=== PATIENT | male | born 1965 | race African-American/Black ===

== ENCOUNTER 2017-07-15 07:30 | Day surgery (SDC) | payer OTHER ==
--- NOTE | 2017-07-11 09:16 | History and Physical ---
History & Physical Date of Service Jul 11, 2017. History & Physical Plan of care discussed with Dr. Salazar CHIEF COMPLAINT: Lower extremity spasticity HISTORY OF PRESENT ILLNESS: Mr. Moseley is a 52 year old male that is known to the [facility] with a history of multiple sclerosis resulting in intractable lower extremity spasticity and rigidity. He has been wheelchair bound since 2006. Patient is able to stand briefly for transfers. He has failed Botox injections into the lower extremities. He is currently utilizing Baclofen 20mg QID with mild efficacy. He does continue to report nighttime awakenings due to spasticity. Spasms are worse on the right that the left. Discomfort ranges from 3-6/10 from the spasticity. Patient denies any constitutional complaints. PAST MEDICAL HISTORY: 1. Depression 2. Relapsing and remitting multiple sclerosis 3. History of marijuana use PAST SURGICAL HISTORY: None WORK HISTORY: Disabled SOCIAL HISTORY: He lives with his fiance in one child. Previous tobacco use. Daily marijuana use. No alcohol use. ALLERGIES: None MEDICATIONS: 1. Fosamax 70 mg daily 2. Baclofen 20 mg 4 times daily 3. Vitamin D 2000 units daily 4. Fluoxetine 20 mg daily 5. Copaxone 40 mg cutaneous injection 3 days a week 6. Multivitamin daily 7. Oxybutynin chloride 5 mg daily REVIEW OF SYSTEMS: Denies any constitutional, cardiac, pulmonary, neurological, GI, , extremity, endocrine, neuro, ENT, dermatological, or musculoskeletal complaints other than stated in HPI PHYSICAL EXAMINATION: VITAL SIGNS: Per admission GENERAL: 52-year-old male appears his stated age. Speech and cognition is intact. Mood and affect is appropriate. He is sitting quietly in the wheelchair, in no acute distress. HEAD: Normocephalic; atraumatic. EYES: Pupils are round, equal, and reactive to light; EOM intact. ENT: No external ear discharge or lesions. No rhinorrhea or epistaxis. No mucosal lesions. NECK: Ttrachea is midline; no cervical lymphadenopathy. CARDIO: Regular rate and rhythm. No murmurs, rubs, or gallops. PULM: Clear to auscultation. No wheezes, rales, or rhonchi. CHEST: Regular chest respiration and excursion. LOWER EXTREMITIES: No clonus noted. There is moderate rigidity of the quadriceps, hamstrings, and posterior lower legs; spasm of the right tibialis musculature. R Hip flexion 1/5; hip extension 1/5; knee extension 1/5; knee flexion 1/5; dorsiflexion 1/55; plantar flexion 1/5 L Hip flexion 3/5; hip extension 3/5; knee extension 3/5; knee flexion 3/5; dorsiflexion 3/5; plantar flexion 3/5 BACK: Full ROM. No midline or facet tenderness. No SI joint tenderness. NEURO: CN II-XII grossly intact with no focal deficits noted. AAO x 3. Gait not observed. Patellar Reflex L +2 R +2 Achilles Reflex L +2 R +2 SKIN: No lesions, erythema, or rashes noted. ASSESSMENT: Multiple sclerosis resulting in intractable lower extremity spasticity and rigidity TREATMENT: Mr. Moseley is a 52 year old male with a significant history of multiple sclerosis resulting in bilateral lower extremity spasticity and rigidity. He is current on Baclofen 80mg daily with mild relief of spasms. He denies any side effects to the medication. Patient does continue to experience significant limitation into his daily activities due to spasm/rigidity. It is recommended that the patient proceed with an intrathecal Baclofen trial to see if he may be a candidate for an intrathecal Baclofen pump and catheter delivery system. Risks and benefits were reviewed. Procedure was explained and he would like to proceed with the procedure. Procedure will be scheduled for 07/15.
[~2017-07-15] VITALS: Ht 175.3 cm; Wt 78.5 kg
[2017-07-15] VITALS (15 sets, daily range): BP systolic 117–176; BP diastolic 65–99; PULSE 54–64; TEMP 36.5–37.6; O2SAT 96–99; Ht 175.3 cm; Wt 78.5 kg
[~2017-07-15 07:30] MED LIST: BACL10TA PO; BACLOFEN 50 MCG/ML ITR SCH; CHOL20009; FLUO20CA35 PO; FSMD/70 PO; GLAT1INJ SQ; MULT-506 PO; OXYB5TAB21 PO; SODIUM CHLORIDE 0.9% 1000ML 1,000 ML IV SCH
[2017-07-15] MEDS ORDERED: FLUO10CA48 PO (07:58)
--- NOTE | 2017-07-15 09:56 | History & Physical Bridge Note ---
H&P Re-Evaluation Bridge Note: I have examined the patient, reviewed the History & Physical and in the interval since the performance of the History & Physical I have noted the following changes of clinical significance: No changes noted History and physical exam reviewed. No changes noted in either. Continues to have spasticity. Laboratory values reviewed and found to be appropriate to proceed. Risks, benefita and alternatives reviewed. He elected to proceed.
--- NOTE | 2017-07-15 11:29 | Pain Clinic Procedure Note ---
Pain Management Procedure Note Date of Procedure Jul 15, 2017. Procedure Description Procedure Time Out: side/site verified, patient ID confirmed, correct procedure Consent Obtained: written Performed By: Dr. Salazar Indications: diagnostic Contraindications: none Pre Procedure Vital Signs Date Time Temp Pulse Resp B/P (MAP) Pulse Ox O2 Delivery O2 Flow Rate FiO2 07/15/17 11:16 56 20 122/88 98 Room Air 07/15/17 10:58 36.8 55 18 146/85 97 Room Air 07/15/17 08:06 36.6 55 18 150/83 (105) 97 Room Air ASA Class: 3 Description: INTRATHECAL BACLOFEN TRIAL FOR SPASTICITY Diagnosis: Spasticity related to multiple sclerosis. Side/Level injected: Approximate L3/L4 Surgeon: Dr. Salazar Prior to starting, the Patients diagnosis and the procedure were reviewed with the patient in detail. Possible risks and complications including infection, bleeding, damage to surrounding structures and increased pain were discussed. Alternative therapies were also reviewed. Patients questions were answered and they agreed to proceed. Informed consent was obtained. Allergies and medication list was reviewed. The patient was brought to the procedure room and placed in sitting position. Immediately prior to starting the procedure, a time out was conducted with the staff and the patient where the patient was identified, proposed procedure was verified, consent was reviewed and the proper site for the planned procedure was identified. Monitors used included intermittent blood pressure with automated device, continuous pulse oximetry and level of consciousness. Patient was not given any intravenous sedation and constant verbal contact was maintained throughout the procedure. On examination, no signs of skin breakdown or infection were noted at the injection site. The site was cleansed with DuraPrep followed by Betadine. Sterile drapes were applied. 1% lidocaine 3 cc, was infiltrated in the skin and subcutaneous tissues using a 27 gauge needle. A 20gauge introducer followed by a 24gauge 3.5 inch Pjunk spinal needle was then inserted through the anesthetized area using 1.5 inch introducer and advanced via midline approach. The patient did not experience pain or paresthesia. Bevel of the needle was directed in the cephalad direction. Aspiration via the needle demonstrated positive CSF but no blood. Next, 50 mcg of preservative free baclofen was injected through the needle. The needle was then withdrawn. Adequate hemostasis was noted. Physical therapy will evaluate the patient three additional times over the next six hours to monitor response. Patient tolerated the procedure uneventfully without complications. Patient was brought to recovery area and observed. Vital signs were stable prior to discharge. Patient was discharged home with standard discharge instructions after 30minutes with an adult tow driver. Complications: none Patient Tolerated Procedure: well Post-Procedure Vital Signs: Vital Signs Date Time Temp Pulse Resp B/P (MAP) Pulse Ox O2 Delivery O2 Flow Rate FiO2 07/15/17 11:16 56 20 122/88 98 Room Air 07/15/17 10:58 36.8 Discharge Instructions: reviewed & understood Additional Comments: Lot #: [id number] Expiration date: 11/2017
--- NOTE | 2017-07-15 17:09 | Discharge Instructions ---
Discharge Instructions Date of Service Jul 15, 2017. Visit Reason for Visit: Ms With Lower Extremity Spasticity Rigidity Discharge Discharge Diagnosis / Problem: multiple sclerosis related spasticity. Status post intrathecal baclofen tr Discharge Goals Goal(s): Improve function Medications Stopped Medications Name(s): None Activity Recommendations Activity Limitations: resume your previous activity Anesthesia . Post Anesthesia Instructions: If you have had General Anesthesia or IV Sedation: * Do not drive today. * Resume driving when surgeon permits. * Do not make important decisions or sign legal documents today. * Call surgeon for: 1. Temperature elevations greater than 101 degrees F. 2. Uncontrollable pain. 3. Excessive bleeding. 4. Persistent nausea and vomiting. 5. Medication intolerance (nausea, vomiting or rash). * For nausea and vomiting use only clear liquids such as: tea, soda, bouillon until nausea subsides, then gradually increase diet as tolerated. * If you have any concerns or questions, call your surgeon's office. If physician is unavailable and it is an emergency, call 911 or go to the nearest emergency room. . Diet Recommendations Recommended Home Diet: resume previous diet Procedures Procedures Performed: Spinal injection of 50 g of baclofen Pending Studies Studies pending at discharge: no Medical Emergencies . Who to Call and When: Medical Emergencies: If at any time you feel your situation is an emergency, please call 911 immediately. . Non-Emergent Contact Non-Emergency issues call your: Primary Care Provider Call Non-Emergent contact if: temperature is above 101, wound has increased drainage . . "Provider Documentation" section prepared by Denis Salazar. . [place] Drug Monitoring Program Search Results: patient reviewed within database
== END 2017-07-15 17:30 | disposition home or self-care (01) ==
LOC: C.ACU 07:30
PROVIDERS: ATTEND Anesthesiology
DX: G35 Multiple sclerosis (principal); F32.9 Major depressive disorder, single episode, unspecified; F12.90 Cannabis use, unspecified, uncomplicated; Z79.899 Other long term (current) drug therapy

== ENCOUNTER 2017-10-07 11:08 | Observation (INO) | payer OTHER ==
--- NOTE | 2017-09-18 15:05 | History and Physical ---
History & Physical Date of Service Sep 18, 2017. History & Physical Plan of care discussed with Dr. Salazar CHIEF COMPLAINT: Lower extremity spasticity HISTORY OF PRESENT ILLNESS: Mr. Moseley is a 52 year old male that is known to the [facility] with a history of multiple sclerosis resulting in intractable lower extremity spasticity and rigidity. He has been wheelchair bound since 2006. Patient is able to stand briefly for transfers. He has failed Botox injections into the lower extremities. He is currently utilizing Baclofen 20mg QID with mild efficacy. He does continue to report nighttime awakenings due to spasticity. Spasms are worse on the right that the left. Discomfort ranges from 3-6/10 from the spasticity. Patient denies any constitutional complaints. PAST MEDICAL HISTORY: 1. Depression 2. Relapsing and remitting multiple sclerosis 3. History of marijuana use PAST SURGICAL HISTORY: None WORK HISTORY: Disabled SOCIAL HISTORY: He lives with his fiance in one child. Previous tobacco use. Daily marijuana use. No alcohol use. ALLERGIES: None MEDICATIONS: 1. Copaxone 40 mg cutaneous injection 3 days a week 2. Baclofen 20 mg 4 times daily 3. Vitamin D 2000 units daily 4. Fluoxetine 50 mg daily REVIEW OF SYSTEMS: Denies any constitutional, cardiac, pulmonary, neurological, GI, , extremity, endocrine, neuro, ENT, dermatological, or musculoskeletal complaints other than stated in HPI PHYSICAL EXAMINATION: VITAL SIGNS: Per admission GENERAL: 52-year-old male appears his stated age. Speech and cognition is intact. Mood and affect is appropriate. He is sitting quietly in the wheelchair, in no acute distress. HEAD: Normocephalic; atraumatic. EYES: Pupils are round, equal, and reactive to light; EOM intact. ENT: No external ear discharge or lesions. No rhinorrhea or epistaxis. No mucosal lesions. NECK: Ttrachea is midline; no cervical lymphadenopathy. CARDIO: Regular rate and rhythm. No murmurs, rubs, or gallops. PULM: Clear to auscultation. No wheezes, rales, or rhonchi. CHEST: Regular chest respiration and excursion. LOWER EXTREMITIES: No clonus noted. There is moderate rigidity of the quadriceps, hamstrings, and posterior lower legs; spasm of the right tibialis musculature. R Hip flexion 1/5; hip extension 1/5; knee extension 1/5; knee flexion 1/5; dorsiflexion 1/5; plantar flexion 1/5 L Hip flexion 3/5; hip extension 3/5; knee extension 3/5; knee flexion 3/5; dorsiflexion 3/5; plantar flexion 3/5 BACK: Full ROM. No midline or facet tenderness. No SI joint tenderness. NEURO: CN II-XII grossly intact with no focal deficits noted. AAO x 3. Gait not observed. SKIN: No lesions, erythema, or rashes noted. ASSESSMENT: Multiple sclerosis resulting in intractable lower extremity spasticity and rigidity TREATMENT: Mr. Moseley is a 52 year old male with a significant history of multiple sclerosis resulting in bilateral lower extremity spasticity and rigidity. He has been on oral Baclofen 80mg daily which is only providing mild relief. Patient did have an intrathecal Baclofen trial performed on 07/15/17 which provided moderate improvement of his symptoms. As the Baclofen trial was successful, it is recommended that the patient have an implantation of an intrathecal pump and catheter delivery system. Risks and benefits were reviewed. Procedure was explained and he would like to proceed with the procedure. Procedure will be scheduled for 10/07/2017.
[2017-09-25 13:59] VITALS: BMI 26.0
--- NOTE | 2017-09-25 14:08 | PAT Medication Instructions ---
Service Date Sep 25, 2017. Current Home Medication List Baclofen (Lioresal), 20 MG PO QID Fluoxetine (Prozac), 10 MG PO TID Glatiramer Acetate (Copaxone), SQ 3XWK Medication Instructions For Your Scheduled Surgery - Check with surgeon/prescribing physician for instructions: Glatiramer Acetate (Copaxone), SQ 3XWK - Take the following medications the morning of surgery with a sip of water: Baclofen (Lioresal), 20 MG PO QID Fluoxetine (Prozac), 10 MG PO TID - Take the following medications as scheduled the night before surgery: Baclofen (Lioresal), 20 MG PO QID Fluoxetine (Prozac), 10 MG PO TID If you have any questions please call us at [phone] or [phone] or [phone]
[2017-09-25 15:18] LABS: BASO % 0.5 %; BASO ABS # 0.03 K/uL (0-0.2); EOS % 2.1 %; EOS ABS # 0.12 K/uL (0-0.5); HEMATOCRIT 43.9 % (42-52); HEMOGLOBIN 15.1 g/dL (14.0-18.0); IG# 0.01 K/uL (0.00-0.02); LYMPH % 32.6 %; MEAN CELL VOLUME 85.2 fL (80-100); MEAN CORPUSCULAR HEMOGLOBIN 29.3 pg (25-34); MEAN CORPUSCULAR HGB CONC 34.4 g/dl (32-36); MONO % 10.5 %; MONO ABS # 0.61 K/uL (0.11-0.59); NEUT % 54.1 %; NEUT ABS # 3.15 K/uL (1.4-6.5); PLATELET COUNT 281 K/uL (130-400); RED CELL DISTRIBUTION WIDTH CV 14.8 % (11.5-14.5); RED CELL DISTRIBUTION WIDTH SD 46.2 fL (36.4-46.3); WHITE BLOOD COUNT 5.82 K/uL (4.8-10.8)
[2017-10-07] VITALS (11 sets, daily range): BP systolic 148–184; BP diastolic 95–128; PULSE 56–103; TEMP 36.6–37.3; O2SAT 95–98; Ht 188 cm; Wt 83.8 kg
[~2017-10-07] VITALS: Ht 188 cm; Wt 83.8 kg
[~2017-10-07 11:08] MED LIST changes: +ATROPINE SULFATE 0.1 MG/ML 5ML SYR IV PRN; -BACLOFEN 50 MCG/ML ITR SCH; +CEFAZOLIN 2000 MG/60 ML D5W 50 ML IV SCH; +CEFAZOLIN 2000MG IV PUSH 15 ML IV SCH; -CHOL20009; +EpHEDrine SULFATE INJ 50 MG/ML AMP IV PRN; +FLUO10CA48 PO; -FLUO20CA35 PO; -FSMD/70 PO; +HYDROmorphone INJ 2 MG/ML SYR/VIAL IV PRN; +LACTATED RINGER'S 1000ML 1,000 ML IV SCH; -MULT-506 PO; +ONDANSETRON INJ 2 MG/ML 2 ML VIAL IV PRN; -OXYB5TAB21 PO; +PHENYLEPHRINE 100MCG/ML 5ML SYR IV PRN; -SODIUM CHLORIDE 0.9% 1000ML 1,000 ML IV SCH
[2017-10-07] MEDS ORDERED: LIDO 2%/EPINEPHRINE 1:100000 20 ML VIAL INFIL ONE (12:28)
[2017-10-07] MEDS ORDERED: BACITRACIN 50000 UNIT VIAL ONE (12:28)
[2017-10-07] MEDS ORDERED: BUPIVACAINE/EPINEPHRINE 0.25% 1:200,000 30 ML VIAL ONE (12:32)
[2017-10-07] MEDS ORDERED: PROPOFOL IV EMULSION 10 MG/ML 20 ML VIAL IV ONE (12:43)
[2017-10-07] MEDS ORDERED: ROCURONIUM BROMIDE 10 MG/ML 5 ML VIAL IV ONE (12:43)
[2017-10-07] MEDS ORDERED: LIDOCAINE HCL 2% 2 ML VIAL (20MG/ML) ONE (12:43)
[2017-10-07] MEDS ORDERED: MIDAZOLAM HCL 1 MG/ML 2ML VIAL ONE (12:44)
[2017-10-07] MEDS ORDERED: FENTANYL CITRATE INJ 50 MCG/1 ML 2 ML VIAL ONE ×3 (12:44→15:25)
--- NOTE | 2017-10-07 13:19 | History & Physical Bridge Note ---
H&P Re-Evaluation Bridge Note: I have examined the patient, reviewed the History & Physical and in the interval since the performance of the History & Physical I have noted the following changes of clinical significance: No changes noted History reviewed, examination performed, pertinent laboratory and imaging studies reviewed. No contraindications noted to proceeding with the proposed procedure. Potential risks including infection, nerve injury, bleeding, hematoma or seroma formation, additional surgical procedures to address these complications, as well as failure to achieve complete relief of preoperative symptoms after the procedure were discussed with the patient. Risks associated with anesthesia required to perform this procedure were reviewed. Alternatives to this procedure were discussed with the patient. Patient's questions were answered. Patient gave informed consent.
[2017-10-07] MEDS ORDERED: ONDANSETRON INJ 2 MG/ML 2 ML VIAL ONE (14:12)
[2017-10-07] MEDS ORDERED: DEXAMETHASONE SOD INJ 4 MG/ML VIAL ONE (14:12)
[2017-10-07] MEDS ORDERED: GLYCOPYRROLATE INJ 0.2 MG/ML VIAL ONE ×2 (14:12→15:53)
[2017-10-07] MEDS ORDERED: IV FLUIDS COMPLETED PRN (14:15)
[2017-10-07] MEDS ORDERED: POVIDONE-IODINE OP SOLN 30 ML BTL ONE (14:45)
[2017-10-07] MEDS ORDERED: BUPIVACAINE/EPINEPHRINE 0.25% 1:200,000 30 ML VIAL INJ ONE (15:15)
--- NOTE | 2017-10-07 15:16 | Operative Note-Pain Management ---
Pain Clinic Operative Note Intrathecal pump and catheter insertion, Catheter access port study, and Postprocedure Reprogramming and Analysis PREOPERATIVE DIAGNOSIS: Intractable spasm secondary to multiple sclerosis POSTOPERATIVE DIAGNOSIS: Same. COMPLICATIONS: None SURGEON: Dr. Salazar and Lens Cutter: Dr. Valdes EBL: 20ml ANESTHESIA: General. MATERIAL FORWARDED TO THE LAB: None. INDICATIONS: The patient had a successful Baclofen intrathecal trial and agreed to intrathecal pump insertion. The patient was explained the risks, benefits, alternatives of the procedure and agreed to proceed as above. Informed consent was obtained and witnessed. A time out was performed after the patient was brought into the Operating Room. Antibiotics were given. The patient was then induced with general anesthesia without complications and was placed in left lateral decubitus position. Fluoroscopy was utilized throughout the procedure. The skin was prepped with duraprep and betadine and draped in sterile fashion. An 18-gauge spinal needle was used to gain access to the CSF through the L2-3 interspace. No heme was noted. Positive CSF flow was obtained and the intrathecal catheter was passed to the T10 vertebral body. The stylet was then removed. A 1-1/2 inch midline incision was made surrounding the intrathecal needle. Hemostasis was achieved. The intrathecal catheter was secured to the fascia with 2 purse string 0 silk ties. Then the spinal needle was removed and a demandmart butterfly anchor to secure the catheter to the underlying supraspinous ligament was utilized. There was positive CSF flow from the intrathecal catheter after anchoring of the catheter to the fascia. Then in the left lower quadrant a pocket for the intrathecal pump was made and hemostasis was achieved. A passer was used to transfer the intrathecal pump catheter underneath the skin and subcutaneous tissues through to the pocket incision. After transfer of the end of the catheter to the pocket incision aspiration of the intrathecal catheter revealed positive CSF flow free flowing. Both pocket and midline axial thoracic incisions were irrigated with 3 bulb syringes full of sterile normal saline with iodine. Hemostasis was achieved. The intrathecal pump was filled was rinsed and filled with baclofen 500mcg/ml per protocol. The intrathecal catheter was trimmed. The sutureless connector was connected to the end the intrathecal pump and aspiration from of the end of the catheter was free-flowing. It was then connected to the intrathecal pump per protocol. The intrathecal pump was anchored in the pocket with 4 0 Prolene sutures. No complications were noted after the intrathecal pump was placed inside the pocket. The skin and subcutaneous tissues of both incisions were closed with O-Stratafix sutures, then 3-0 Stratafix sutures, followed by dermabond Prineo dressing. The skin was cleansed and dried and Xeroform followed by 4 x 4's and Tegaderms were placed for closure dressings. An abdominal binder was placed on the patient. No complications were noted throughout the procedure. The patient tolerated the procedure and general anesthesia well and was extubated at the end of the procedure. [facility] and was taken to the recovery room in stable condition. The patient will follow up with our clinic at 7 days for a wound check and further care. . Pump size inserted: 20ml Level of catheter: T10 Catheter was trimmed, see medtronic sheet Medication placed in pump: Baclofen 500mcg/ml to run at 25mcg/day I attest to the content of the Intraoperative Record and any orders documented therein. Any exceptions are noted below.
--- NOTE | 2017-10-07 15:17 | Pain Management Consultation ---
Pain Consultation Date of Service Oct 07, 2017. Pain Consultation I spoke with the patient's about the patient's procedure in the OR via telephone. All questions were answered.
[2017-10-07] MEDS ORDERED: NEOSTIGMINE METHYLSULFATE 5 MG/5 ML SYR ONE (15:53)
--- NOTE | 2017-10-07 16:16 | Anesthesiology Progress Note ---
Anesthesia Post Op Note Date & Time Oct 07, 2017 at 16:16 Vital Signs Pain Intensity: 0 Vital Signs Past 12 Hours Date Time Temp Pulse Resp B/P (MAP) Pulse Ox O2 Delivery O2 Flow Rate FiO2 10/07/17 16:05 65 14 146/98 97 Oxymask 3 10/07/17 15:55 68 14 149/99 97 Oxymask 5 10/07/17 15:45 36.3 69 12 135/105 98 Oxymask 10 10/07/17 11:31 36.6 56 18 161/95 (117) 95 Room Air Notes Mental Status: alert / awake / arousable, participated in evaluation Pt Amnestic to Procedure: Yes Nausea / Vomiting: adequately controlled Pain: adequately controlled Airway Patency, RR, SpO2: stable & adequate BP & HR: stable & adequate Hydration State: stable & adequate Anesthetic Complications: no major complications apparent
[2017-10-07] MEDS: LACTATED RINGER'S 1000ML 1,000 ML IV SCH (18:32)
[2017-10-07] MEDS ORDERED: NURSING VERBAL MED ORDER ONE ×2 (18:45→22:00)
[2017-10-07] MEDS: HYDROCODONE/ACETAMIN 5/325MG TAB PO PRN (21:26)
[2017-10-07] MEDS ORDERED: HydrALAZINE HCL 20 MG/ML VIAL ONE (21:57)
[2017-10-08] VITALS (15 sets, daily range): BP systolic 151–190; BP diastolic 70–108; PULSE 60–105; TEMP 36.7–37.1; O2SAT 95–97
[2017-10-08] MEDS: LACTATED RINGER'S 1000ML 1,000 ML IV SCH (01:31)
[2017-10-08] MEDS: HYDROCODONE/ACETAMIN 5/325MG TAB PO PRN ×3 (02:11→21:51)
[2017-10-08] MEDS: BACLOFEN 10 MG TAB PO PRN ×3 (02:30→23:16)
--- NOTE | 2017-10-08 09:36 | Pain Management Progress Note ---
Pain Management Progress Note Date of Service Oct 08, 2017. Subjective This is a 52 y/o male that had an intrathecal Baclofen pump and catheter delivery system implanted on 10/07/17. He states that since surgery he has not been able to fully void. He is able to let out a few dribbles of urine at a time. He did require a straight catheterization. Patient's blood pressure has been slightly elevated throughout the night. He received Hydralazine 5mg IV last night with improvement. Patient denies any history of hypertension. This morning he woke up with a slight headache along the right temporal region. Headache is not positional. There is no change of leg rigidity at this time. Mild pain at the incision sites which is controlled with [place]. He denies any fevers, chills, nausea, vomiting, abdominal pain, urinary burning, hematuria, flank pain. Case discussed with Dr. Becky Valdes Objective Vital Signs: Last Vital Signs Documentation Date Time Temp Pulse Resp B/P (MAP) Pulse Ox O2 Delivery O2 Flow Rate FiO2 10/08/17 08:41 37.0 77 20 157/107 (124) 96 Room Air 10/07/17 17:30 3 Physical Exam: GENERAL: Mr. Moseley is a 52 y/o black male that appears his stated age. Speech and cognition is intact. Mood and affect is appropriate. Lying in the hospital bed, no acute distress. CHEST: Regular chest respiration and excursion. ABDOMEN: Active bowel sounds throughout; non-tender to palpation. No abdominal distention. No peritoneal signs. No CVA tenderness bilaterally. EXTREMITIES: Moderate rigidity of the bilateral lower extremities. NEURO: CN II-XII grossly intact with no focal deficits noted. AAO x 3. SKIN: Incision obed ghte thoracolumbar junction is closed with Prineo bandage. There is no edema, erythema, or drainage. The LLQ abdominal incision has prineo bandage in place without erythema, drainage, warmth. Laboratory Laboratory Findings 09/25/17 14:39 Red Blood Count 5.15, Mean Corpuscular Volume 85.2, Mean Corpuscular Hemoglobin 29.3, Mean Corpuscular Hemoglobin Concent 34.4, Mean Platelet Volume 11.0 H, Neutrophils (%) (Auto) 54.1, Lymphocytes (%) (Auto) 32.6, Monocytes (%) (Auto) 10.5, Eosinophils (%) (Auto) 2.1, Basophils (%) (Auto) 0.5, Neutrophils # (Auto ) 3.15, Lymphocytes # (Auto) 1.90, Monocytes # (Auto) 0.61 H, Eosinophils # ( Auto) 0.12, Basophils # (Auto) 0.03 Assessment 1. Intractable lower extremity spasticity and rigidity secondary to multiple sclerosis requiring the implantation of an intrathecal baclofen pump and catheter delivery system. 2. Urinary retention 3. Hypertension Recommendations 1. Bandages were changed. Incisions appear well. Recommend dressing changes daily. Wear abdominal binder 17/02 x 4 weeks than during the day x 4 weeks. 2. Patient is planning on going to [facility] postoperatively. 3. Will continue to monitor patient's urinary symptoms and blood pressure. Hospitalist was consulted. 4. Wound check appointment is scheduled for 10/14/17 at 1300, and 10/21/17 at 1405. Pump refill date scheduled for 01/07/18 at 1300.
[2017-10-08] MEDS ORDERED: ACETAMINOPHEN 325 MG TAB PO STA (09:37)
[2017-10-08] MEDS ORDERED: AMLODIPINE BESYLATE 5 MG TAB PO ONE ×2 (10:30→18:30)
[2017-10-08] MEDS ORDERED: HydrALAZINE HCL 20 MG/ML VIAL IV. PRN (10:30)
--- NOTE | 2017-10-08 10:48 | Medical Consult ---
Consultation Date of Consultation: Oct 08, 2017. Attending Physician: Upendra. Salazar M.D. Reason for Consultation: Hypertension History of Present Illness Patient is a 52 y/o male, with PMHx of multiple sclerosis resulting in bilateral lower extremity spasticity and rigidity and depression, who was admitted under pain management service for implantation of an intrathecal pump and catheter delivery system by Dr. Valdes on 10/07. Hospitalist team was consulted for HTN. Patient resting in bed. Feeling well. Eating and drinking OK. This AM had a mild headache, but has since resolved. Denies any history of HTN. Does not take his BP regularly. States it fluctuates a lot, but unsure of recordings. +urinary retention- seems to be improving per patient. No h/o BPH or urinary issues. Patient denies any fever, chills, sweats, lightheadedness, dizziness, vision changes, CP, palpitations, edema, SOB, wheezing, cough, abdominal pain, nausea, vomiting, diarrhea, urinary symptoms, melena, numbness/ tingling, weakness, muscle/joint pain, anxiety/depression, active bleeding, or new skin discoloration/changes. Past Medical/Surgical History PMHx: Depression Multiple sclerosis resulting in bilateral lower extremity spasticity and rigidity Surgical History: NONE Family History Denies significant family history Social History Smoking Status: Former Smoker Alcohol Use: none Drug Use: marijuana Marital Status: in relationship Housing Status: lives with significant other Allergies Coded Allergies: No Known Allergies (Unverified , 10/07/17) Home Medications Reported Home Medications Medications Dose Route/Sig Max Daily Dose Days Date Category Prozac (Fluoxetine HCl) 10 Mg Cap 10 Mg PO TID 07/15/17 Reported Copaxone (Glatiramer Acetate) 40 Mg/Ml Inj SQ [id number] 07/08/16 Reported Lioresal (Baclofen) 10 Mg Tab 20 Mg PO QID 07/08/16 Reported Current Inpatient Medications Current Inpatient Medications Medications (Trade) Dose Ordered Sig/Brenna Route Start Time Stop Time Status Last Admin Dose Admin Acetaminophen/ Hydrocodone Bitart ([place] 5/325 Tab) 1 tab Q4R PRN PO 10/07/17 13:30 10/21/17 13:29 10/08/17 07:19 1 TAB Lactated Ringer's 1,000 ml @ 75 mls/hr [id number] IV 10/07/17 18:30 10/08/17 18:29 10/08/17 01:31 75 MLS/HR Baclofen (Lioresal Tab) 10 mg QID PRN PO 10/07/17 13:30 11/06/17 13:29 10/08/17 02:30 10 MG Miscellaneous (Iv Fluids Completed) 1 ea PRN PRN N/A 10/07/17 14:15 10/07/18 14:14 Physical Exam Date Time Temp Pulse Resp B/P (MAP) Pulse Ox O2 Delivery O2 Flow Rate FiO2 10/08/17 08:41 37.0 77 20 157/107 (124) 96 Room Air 10/08/17 08:00 Room Air 10/08/17 07:23 60 163/94 (117) 10/08/17 04:06 37.0 91 18 151/97 (115) 96 Room Air 10/08/17 04:00 Room Air 10/08/17 02:49 162/100 (120) 10/08/17 02:05 168/101 (123) 10/08/17 01:29 168/102 (124) 10/08/17 00:43 166/102 (123) 10/08/17 00:28 158/98 (118) 10/08/17 00:16 172/103 (126) 10/08/17 00:00 Room Air 10/07/17 23:35 37.3 103 17 184/128 (146) 96 Room Air 103 10/07/17 22:37 82 153/103 (120) 10/07/17 22:21 148/108 (121) 10/07/17 21:49 79 163/122 (136) 179/116 (137) 10/07/17 20:20 98 10/07/17 20:02 79 162/99 (120) 96 10/07/17 19:30 37.0 75 18 177/97 (123) 96 Room Air 10/07/17 19:18 36.8 76 18 157/113 (128) 98 Room Air 10/07/17 18:05 96 Room Air 10/07/17 17:30 36.9 79 18 161/97 (118) 98 Room Air 10/07/17 17:30 65 16 142/100 96 Nasal Cannula 3 10/07/17 17:15 70 16 150/102 96 Nasal Cannula 3 10/07/17 17:00 67 16 149/95 96 Nasal Cannula 3 10/07/17 16:45 67 16 137/97 97 Nasal Cannula 3 10/07/17 16:35 36.4 61 16 146/100 97 Nasal Cannula 3 10/07/17 16:25 61 16 144/99 96 Nasal Cannula 3 10/07/17 16:15 65 16 146/98 96 Nasal Cannula 3 10/07/17 16:05 65 14 146/98 97 Oxymask 3 10/07/17 15:55 68 14 149/99 97 Oxymask 5 10/07/17 15:45 36.3 69 12 135/105 98 Oxymask 10 10/07/17 11:31 36.6 56 18 161/95 (117) 95 Room Air General Appearance: no apparent distress Head: normocephalic, atraumatic Eyes: normal inspection, PERRL ENT: hearing grossly normal Neck: supple Respiratory/Chest: lungs clear, no respiratory distress, no accessory muscle use Cardiovascular: regular rate, rhythm Abdomen/GI: normal bowel sounds, non tender, soft, + pertinent finding ( abdominal incision site dressing C/D/I) Back: normal inspection, + pertinent finding (incision site dressing C/D/I) Extremities/Musculoskelatal: no calf tenderness, no pedal edema Neurologic/Psych: alert, normal mood/affect, oriented x 3 Skin: normal color, warm/dry, no rash Assessment & Plan Patient is a 52 y/o male, with PMHx of multiple sclerosis resulting in bilateral lower extremity spasticity and rigidity and depression, who was admitted under pain management service for implantation of an intrathecal pump and catheter delivery system by Dr. Valdes on 10/07. Hospitalist team was consulted for HTN. s/p implantation of an intrathecal pump and catheter delivery system by Dr. Valdes on 10/07: - Surgical management, pain management, PT/OT, DVT prophylaxis as per surgical team - Follow CBC and PRP HTN: - Start Amlodipine 5 mg daily and monitor BPs - IV Hydralazine PRN for sbp >170 or dbp >100 Urinary retention postop: - Bladder scan and straight cath PRN - Check UA - Continue to monitor Depression: Continue Prozac 10 mg TID DVT prophylaxis: As per primary team Code status: FULL, NO CARDIOVERSION Dispo: As per primary team
[2017-10-08 11:37] LABS: HEMOGLOBIN 14.4 g/dL (14.0-18.0); MEAN CELL VOLUME 84.3 fL (80-100); MEAN CORPUSCULAR HEMOGLOBIN 28.9 pg (25-34); MEAN CORPUSCULAR HGB CONC 34.3 g/dl (32-36); MEAN PLATELET VOLUME 10.5 fL (7.4-10.4); PLATELET COUNT 333 K/uL (130-400); RED CELL DISTRIBUTION WIDTH SD 46.2 fL (36.4-46.3); WHITE BLOOD COUNT 12.65 K/uL (4.8-10.8)
[2017-10-08 12:02] LABS: CALCIUM 8.9 mg/dl (8.5-10.1); CREATININE 0.84 mg/dl (0.60-1.40); POTASSIUM 3.6 mmol/L (3.5-5.1)
[2017-10-08] MEDS ORDERED: FLUOXETINE HCL 10 MG CAP PO SCH (14:00)
[2017-10-08] MEDS ORDERED: TAMSULOSIN HCL 0.4 MG CAP PO ONE (15:45)
[2017-10-08] MEDS: HydrALAZINE HCL 20 MG/ML VIAL IV. PRN ×2 (16:01→21:50)
[2017-10-08] MEDS ORDERED: NURSING VERBAL MED ORDER ONE (17:45)
[2017-10-08] MEDS: FLUOXETINE HCL 20 MG CAP PO SCH (21:51)
[2017-10-08] MEDS ORDERED: ONDANSETRON INJ 2 MG/ML 2 ML VIAL IV STA (22:46)
[2017-10-08] MEDS ORDERED: LORAZEPAM 0.5 MG TAB PO STA (23:32)
[2017-10-08] MEDS ORDERED: LORAZEPAM 0.5 MG TAB ONE (23:33)
[2017-10-09] VITALS (10 sets, daily range): BP systolic 144–172; BP diastolic 84–105; PULSE 78–107; TEMP 36.6–37; O2SAT 95–96
[2017-10-09] MEDS: HYDROCODONE/ACETAMIN 5/325MG TAB PO PRN (03:25)
[2017-10-09] MEDS: BACLOFEN 10 MG TAB PO PRN ×2 (08:43→12:35)
[2017-10-09] MEDS: FLUOXETINE HCL 20 MG CAP PO SCH ×3 (08:43→20:54)
[2017-10-09] MEDS: AMLODIPINE BESYLATE 5 MG TAB PO SCH (08:44)
[2017-10-09] MEDS ORDERED: AMLODIPINE BESYLATE 5 MG TAB PO SCH (09:00)
[2017-10-09] MEDS ORDERED: NURSING VERBAL MED ORDER ONE (09:15)
[2017-10-09] MEDS ORDERED: ACETAMINOPHEN 325 MG TAB PO PRN (09:30)
[2017-10-09] MEDS: TAMSULOSIN HCL 0.4 MG CAP PO SCH (09:45)
--- NOTE | 2017-10-09 11:22 | Hospitalist Progress Note ---
Hospitalist Progress Note Date of Service Oct 09, 2017. Subjective Pt evaluation today including: conversation w/ patient, physical exam, lab review, review of inpatient medication list Voiding: no voiding problems Patient resting in bed. Feeling well. Mild headache this AM, but improved since yesterday. Eating and drinking OK. [place] causing nausea- trying Tylenol. Pain currently well controlled. Denies any urinary issues. Amlodipine increased to 10 mg daily- continue to monitor, slight improvement in BPs. Patient denies any fever, chills, sweats, lightheadedness, dizziness, vision changes, CP, palpitations, edema, SOB, wheezing, cough, abdominal pain, vomiting , diarrhea, urinary symptoms, melena, numbness/tingling, weakness, muscle/joint pain, anxiety/depression, active bleeding, or new skin discoloration/changes. Medications Current Inpatient Medications Medications (Trade) Dose Ordered Sig/Brenna Route Start Time Stop Time Status Last Admin Dose Admin Acetaminophen/ Hydrocodone Bitart ([place] 5/325 Tab) 1 tab Q4R PRN PO 10/07/17 13:30 10/21/17 13:29 10/09/17 03:25 1 TAB Baclofen (Lioresal Tab) 10 mg QID PRN PO 10/07/17 13:30 11/06/17 13:29 10/09/17 08:43 10 MG Miscellaneous (Iv Fluids Completed) 1 ea PRN PRN N/A 10/07/17 14:15 10/07/18 14:14 Hydralazine HCl (HydrALAZINE INJ) 20 mg Q6H PRN IV. 10/08/17 12:15 11/07/17 10:29 10/08/17 21:50 20 MG Tamsulosin HCl (Flomax Cap) 0.4 mg QAM PO 10/09/17 09:00 11/08/17 08:59 10/09/17 09:45 0.4 MG Fluoxetine HCl (Prozac Cap) 20 mg TID PO 10/08/17 21:00 11/07/17 13:59 10/09/17 08:43 20 MG Amlodipine Besylate (Norvasc Tab) 10 mg QAM PO 10/09/17 09:00 11/08/17 08:59 10/09/17 08:44 10 MG Acetaminophen (Tylenol Tab) 650 mg Q6H PRN PO 10/09/17 09:30 11/08/17 09:29 10/09/17 09:45 650 MG Objective Vital Signs Date Time Temp Pulse Resp B/P (MAP) Pulse Ox O2 Delivery O2 Flow Rate FiO2 10/09/17 08:00 36.9 83 93 157/97 (117) Room Air 10/09/17 08:00 Room Air 10/09/17 04:00 Room Air 10/09/17 03:15 37.0 100 20 162/95 (117) 96 Room Air 10/09/17 00:31 92 10/09/17 00:19 107 172/105 (127) 10/09/17 00:00 Room Air 10/08/17 23:24 36.8 105 20 184/70 (108) 95 Room Air 10/08/17 20:00 36.7 86 18 190/90 (123) 97 Room Air 10/08/17 16:56 90 176/94 (121) 10/08/17 16:00 Room Air 10/08/17 15:26 37.1 60 20 167/100 (122) 95 Room Air 10/08/17 12:30 36.8 79 20 177/108 (131) 96 Room Air 10/08/17 12:00 Room Air Physical Exam General Appearance: no apparent distress Eyes: normal inspection, PERRL ENT: hearing grossly normal Neck: supple Respiratory/Chest: lungs clear, no respiratory distress, no accessory muscle use Cardiovascular: regular rate, rhythm Abdomen: normal bowel sounds, non tender, soft Extremities: no pedal edema, no calf tenderness Neurologic/Psychiatric: alert, normal mood/affect, oriented x 3 Skin: normal color, warm/dry, no rash Laboratory Results Last 24 Hours Test 10/08/17 11:15 White Blood Count 12.65 K/uL Red Blood Count 4.98 M/uL Hemoglobin 14.4 g/dL Hematocrit 42.0 % Mean Corpuscular Volume 84.3 fL Mean Corpuscular Hemoglobin 28.9 pg Mean Corpuscular Hemoglobin Concent 34.3 g/dl RDW Standard Deviation 46.2 fL RDW Coefficient of Variation 15.0 % Platelet Count 333 K/uL Mean Platelet Volume 10.5 fL Sodium Level 136 mmol/L Potassium Level 3.6 mmol/L Chloride Level 103 mmol/L Carbon Dioxide Level 25 mmol/L Anion Gap 8.0 mmol/L Blood Urea Nitrogen 8 mg/dl Creatinine 0.84 mg/dl Est Creatinine Clear Calc Drug Dose 119.6 ml/min Estimated GFR () 116.7 Estimated GFR (Non- 100.7 BUN/Creatinine Ratio 9.9 Random Glucose 110 mg/dl Calcium Level 8.9 mg/dl Assessment and Plan Patient is a 52 y/o male, with PMHx of multiple sclerosis resulting in bilateral lower extremity spasticity and rigidity and depression, who was admitted under pain management service for implantation of an intrathecal pump and catheter delivery system by Dr. Valdes on 10/07. Hospitalist team was consulted for HTN. s/p implantation of an intrathecal pump and catheter delivery system by Dr. Valdes on 10/07: - Surgical management, pain management, PT/OT, DVT prophylaxis as per surgical team - Follow CBC and PRP- STABLE HTN- IMPROVING: - Start Amlodipine 5 mg daily and monitor BPs- increased to 10 mg daily for better BP management, will continue to follow - IV Hydralazine PRN for sbp >170 or dbp >100 Urinary retention postop: - Bladder scan and straight cath PRN - UA negative - Continue to monitor- has not required straight cath in >24 hours Depression: Continue Prozac 20 mg TID DVT prophylaxis: As per primary team Code status: FULL, NO CARDIOVERSION Dispo: As per primary team
--- NOTE | 2017-10-09 11:50 | Pain Management Progress Note ---
Pain Management Progress Note Date of Service Oct 09, 2017. Subjective Mr. Moseley had an intrathecal Baclofen pump implanted on 10/07/17. He was experiencing urinary retention yesterday. Last night he was able to fully void. He does continue to have high BP since surgery. Hospitalist was consulted and initiated on Amlodipine 5mg yesterday, increased to 10mg today. Patient denies any headache or symptoms from high blood pressure. Patient does report increased leg spasms last night and does request a dosage increase to the pump. Case discussed with Dr. Salazar Objective Vital Signs: Last Vital Signs Documentation Date Time Temp Pulse Resp B/P (MAP) Pulse Ox O2 Delivery O2 Flow Rate FiO2 10/09/17 04:00 Room Air 10/09/17 03:15 37.0 100 20 162/95 (117) 96 10/07/17 17:30 3 Physical Exam: GENERAL: Mr. Moseley is a 52 y/o black male that appears his stated age. Speech and cognition is intact. Mood and affect is appropriate. Lying in the hospital bed, no acute distress. ABDOMEN: Active bowel sounds throughout; non-tender to palpation. No abdominal distention. No peritoneal signs. No CVA tenderness bilaterally. EXTREMITIES: Moderate rigidity of the bilateral lower extremities. No caitlin spasm noted. NEURO: CN II-XII grossly intact with no focal deficits noted. AAO x 3. SKIN: Incision along the thoracolumbar junction is closed with Prineo bandage without edema, erythema, or drainage. The LLQ abdominal incision has Prineo bandage in place without erythema, drainage, warmth. Laboratory Laboratory Findings 10/08/17 11:15 Assessment 1. Intractable lower extremity spasticity and rigidity secondary to multiple sclerosis requiring the implantation of an intrathecal baclofen pump and catheter delivery system. 2. Urinary retention 3. Hypertension Recommendations 1. A 10% dosage increase was made to the pump today. Baclofen dosage was increased to 27.49 mcg/day. 2. Urinary sx have resolved today. 3. Once blood pressure is controlled, patient will be discharged to facility. 4. Dressings were changed and incisions appear well without any drainage, erythema, or warmth.
[2017-10-09] MEDS ORDERED: FLM4 PO (13:44)
[2017-10-09] MEDS ORDERED: NRV5 PO (13:44)
[2017-10-09] MEDS ORDERED: ACET-1047 PO (13:44)
--- NOTE | 2017-10-09 13:55 | Discharge Instructions ---
Discharge Instructions Date of Service Oct 09, 2017. Visit Reason for Visit: Multiple Sclerosis W/Lower Extremity Spasticity/Ri Discharge Discharge Diagnosis / Problem: Lower extremity spasticity Discharge Goals Goal(s): Decrease discomfort, Improve function, Increase independence Activity Recommendations Activity Recommendations: no lifting of items 5lbs or more, no repetitive bending, no repetitive twists, no repetitive reaching over head Anesthesia . Post Anesthesia Instructions: If you have had General Anesthesia or IV Sedation: * Do not drive today. * Resume driving when surgeon permits. * Do not make important decisions or sign legal documents today. * Call surgeon for: * Temperature elevations greater than 101 degrees F. * Uncontrollable pain. * Excessive bleeding. * Persistent nausea and vomiting. * Medication intolerance (nausea, vomiting or rash). * For nausea and vomiting use only clear liquids such as: tea, soda, bouillon until nausea subsides, then gradually increase diet as tolerated. * If you have any concerns or questions, call your surgeon's office. If physician is unavailable and it is an emergency, call 911 or go to the nearest emergency room. . Instructions Instructions / Follow-Up . * Change dressings daily. Apply sterile dry gauze. * Call [facility] [phone] or go to the nearest emergency room if he experience high fevers, new back pain, new neurological symptoms such as numbness or weakness in the lower extremity or new bowel bladder incontinence. Also of call if he experience a headache that is positional. * Wear abdominal binder. * No showers for 3 days after surgery. * Resume normal activity. No repetitive bending, twisting or reaching overhead for 2 weeks. Do not lift more than 5 pounds for 2 weeks. . Follow-Up Follow-Up: 1 week in office for wound check (10/14/17 at 1PM for 1 week wound check. 2 week wound check on 10/21/17 at 2:05PM.) Diet Recommendations Home Diet: no limitations Procedures Procedures Performed: Implantation of intrathecal catheter and pump,Catheter pump access, port reanalysis and program Pending Studies Studies pending at discharge: no Medical Emergencies . Who to Call and When: Medical Emergencies: If at any time you feel your situation is an emergency, please call 911 immediately. . Non-Emergent Contact Non-Emergency issues call your: Pain Management provider . Past History Medical & Surgical History: (1) Depressive disorder (2) Multiple sclerosis . "Provider Documentation" section prepared by Ann [facility] Monitoring Program Search Results: no issues identified
--- NOTE | 2017-10-09 14:07 | Discharge Summary ---
Discharge Summary Date of Service Oct 09, 2017. Discharge Summary Admission Date: Oct 07, 2017 at 18:02 Discharge Date: Oct 09, 2017 Discharge Disposition: Rehab Primary Diagnosis: lower extremity spasticity Secondary Diagnoses/Problems: hypertension Urinary retention Procedures: Implantation of an intrathecal Baclofen pump Consultations: Hospitalist for hypertension Pending Studies/Follow-Up: 1 week wound check - 10/14/17 at 1PM 2 week wound check - 10/21/17 at 2:05PM Recommend follow up with PCP within a week for follow up regarding hypertension. Discharge Instructions Last Recorded Wt (Kilograms): 82.600 Activity Recommendations: limitations Diet At Discharge: Regular Allergies: Coded Allergies: No Known Allergies (Unverified , 10/07/17) Discharge Medications: Flomax x 5 days Amlodipine 10mg daily. Given 10 days supply. Special Care: Call your doctor if: * Temperature above 101 degrees * Pain not relieved by pain medicine ordered * There is increased drainage or redness from any incision * You have any unanswered questions or concerns. Avoid all tobacco products. If you need help to stop smoking, call [facility] FREE QUITLINE at . This is a free call. Hospital Course Intrathecal Baclofen pump and catheter delivery system was implanted. Incision appears to be healing well. After surgery he was experiencing hypertension and urinary retention. Urinary retention has resolved. For hypertension he has been given Amlodipine 10mg daily. Recommend close follow up with PCP regarding blood pressure. 1 and 2 week follow ups have been scheduled for wound checks at the Pain Management office. Recommend follow up with PCP regarding elevated blood pressure. He is going to a rehab facility where the bandages need changed daily. The abdominal binder should remain in place 17/02 x 4 weeks. Tylenol for incisional pain as hydrocodone is causing some nausea. Total time spent on discharge = This includes examination of the patient, discharge planning, medication reconciliation, and communication with other providers.
[2017-10-09] MEDS: HydrALAZINE HCL 20 MG/ML VIAL IV. PRN (16:16)
[2017-10-09] MEDS ORDERED: LISINOPRIL 5 MG TAB PO ONE (16:45)
[2017-10-10 00:51] VITALS: BP 144/89; PULSE 93; TEMP 37.1; O2SAT 92
[2017-10-10 01:22] VITALS: BP 141/89; PULSE 102; O2SAT 96
[2017-10-10 05:09] VITALS: BP 149/76; PULSE 87; TEMP 37; O2SAT 96
[2017-10-10 08:00] VITALS: BP 137/79; PULSE 86; TEMP 36.8; O2SAT 96
[2017-10-10] MEDS: TAMSULOSIN HCL 0.4 MG CAP PO SCH (08:00)
[2017-10-10] MEDS: FLUOXETINE HCL 20 MG CAP PO SCH ×2 (08:00→13:14)
[2017-10-10] MEDS: BACLOFEN 10 MG TAB PO PRN ×2 (08:00→13:14)
[2017-10-10] MEDS: AMLODIPINE BESYLATE 5 MG TAB PO SCH (08:00)
[2017-10-10] MEDS ORDERED: LISINOPRIL 5 MG TAB PO SCH (09:00)
--- NOTE | 2017-10-10 09:34 | Pain Management Progress Note ---
Pain Management Progress Note Date of Service Oct 10, 2017. Subjective Mr. Moseley had an intrathecal Baclofen pump implanted on 10/07/17. He continues to have resolution of his urinary retention yesterday. Medicine has been titrating lisinopril/norvasc with good efficacy on his BP. Patient denies any headache, is voiding and eating well, and is eager for discharge today. Patient does report some leg spasms last night. Objective Vital Signs: Last Vital Signs Documentation Date Time Temp Pulse Resp B/P (MAP) Pulse Ox O2 Delivery O2 Flow Rate FiO2 10/10/17 08:00 Room Air 10/10/17 05:09 37.0 87 19 149/76 (100) 96 10/07/17 17:30 3 Physical Exam: GENERAL: Mr. Moseley is a 52 y/o AA male that appears his stated age. Speech and cognition is intact. Mood and affect is appropriate. Sitting in the bedside chair in no acute distress. ABDOMEN: Active bowel sounds throughout; non-tender to palpation. No abdominal distention. No peritoneal signs. No CVA tenderness bilaterally LLQ and midline spine incisions are healing well w/o erythema/fluctuance/discharge. EXTREMITIES: Mild rigidity of the bilateral lower extremities. No caitlin spasm noted. 4/5 strength LLE, 2/5 strength RLE NEURO: CN II-XII grossly intact with no focal deficits noted. AAO x 3. Laboratory Laboratory Findings 10/08/17 11:15 Assessment 1. Intractable lower extremity spasticity and rigidity secondary to multiple sclerosis requiring the implantation of an intrathecal baclofen pump and catheter delivery system. 2. Urinary retention- resolved 3. Hypertension-improved Recommendations 1. No dose changes were made to the Intrathecal baclofen pump today, it remains at 27.49 mcg/day. Plan for increase next friday as outpt in follow up for a wound check at the [facility] pain clinic. 2. Urinary sx continue to be resolved today. 3. HTN under better control, patient will be discharged to facility today 4. Dressings were changed and incisions appear to be healing well without any drainage, erythema, or warmth.
[2017-10-10] MEDS ORDERED: LSN5 PO (09:46)
[2017-10-10 12:01] VITALS: BP 158/95; PULSE 81; TEMP 36.7; O2SAT 97
[2017-10-10] MEDS ORDERED: FLUO20CA36 PO (12:33)
[2017-10-10] MEDS ORDERED: LRS10 PO (12:35)
--- NOTE | 2017-10-10 14:12 | Progress Note ---
Subjective Date of Service: Oct 10, 2017. Subjective Pt evaluation today including: conversation w/ patient, conversation w/ family Doing fair, eating drinking, no complaint, primary team is ready to discharge, pain and spasm fairly controlled Review of Systems Constitutional: + weakness, + fatigue, No fever, No chills, No sweats, No weight loss, No problem reported Eyes: No worsening of vision, No eye pain, No redness, No discharge, No diplopia ENT: No hearing loss, No unusual epistaxis, No nasal symptoms, No sore throat, No tinnitus, No dental problems, No trouble swallowing Respiratory: No cough, No sputum, No wheezing, No shortness of breath, No dyspnea on exertion, No dyspnea at rest, No hemoptysis Cardiac: No chest pain, No orthopnea, No PND, No edema, No claudication, No palpitations Abdomen: No pain, No nausea, No vomiting, No diarrhea, No constipation Musculoskeletal: + joint pain, No muscle pain, No swelling, No calf pain Male : No dysuria, No urinary frequency, No incontinence, No nocturia more than once/night, No slowing stream, No hematuria Neurologic: No memory loss, No paralysis, No weakness, No numbness/tingling, No vertigo, No balance problems Psychiatric: No depression symptoms, No anhedonism, No anxiety, No insomnia, No substance abuse Heme: No abnormal bleeding/bruising, No clotting problems, No swollen lymph nodes, No night sweats Endo: No fatigue, No excessive thirst, No excessive urination Skin: No rash, No itch, No new/changing skin lesions, No color change, No bleeding Objective Vital Signs Date Time Temp Pulse Resp B/P (MAP) Pulse Ox O2 Delivery O2 Flow Rate FiO2 10/10/17 12:01 36.7 81 16 158/95 (116) 97 Room Air 10/10/17 08:00 36.8 86 18 137/79 (98) 96 Room Air 10/10/17 08:00 Room Air 10/10/17 05:09 37.0 87 19 149/76 (100) 96 Room Air Oxymask 10/10/17 04:00 Room Air 10/10/17 01:22 102 20 141/89 (106) 96 Room Air 10/10/17 00:51 37.1 93 16 144/89 (107) 92 Room Air 10/10/17 00:00 Room Air 10/09/17 20:57 157/90 (112) 10/09/17 20:00 Room Air 10/09/17 19:56 36.6 102 20 95 Room Air 10/09/17 17:52 105 144/84 (104) 10/09/17 16:14 36.8 78 18 156/105 (122) 96 Room Air 10/09/17 16:00 Room Air 10/09/17 15:09 36.8 84 16 96 Room Air Physical Exam General Appearance: WD/WN, no apparent distress Eyes: normal inspection, PERRL, EOMI, sclerae normal ENT: normal ENT inspection, hearing grossly normal, pharynx normal Neck: supple, no adenopathy, thyroid normal, no JVD, no carotid bruits, trachea midline Respiratory/Chest: chest non-tender, lungs clear, normal breath sounds, no respiratory distress, no accessory muscle use Cardiovascular: regular rate, rhythm, no edema, no gallop, no JVD, no murmur Abdomen: normal bowel sounds, non tender, soft, no organomegaly, no pulsatile mass Extremities: normal capillary refill, pelvis stable, + pertinent finding (Back muscle spasm) 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 Vadles on 10/07: - Surgical management, pain management, PT/OT, DVT prophylaxis as per surgical team Accelerated HTN: Has started amlodipine 5 mg p.o. daily which was increased to 10 mg p.o. daily, Blood pressure still poorly controlled, add lisinopril 5 mg p.o. daily yesterday Has been on IV Hydralazine PRN for sbp >170 or dbp >90 Today's much better, advised to be discharged on amlodipine 10 mg p.o. daily and lisinopril 5 mg p.o. daily, Depression: Has verified with [facility], patient's Prozac is 20 mg TID Discussed with patient about her care plan, advised him to follow-up with [facility]'s team and behavioral health, he agreed Continued [facility] stay due to: home environment unsafe for pt Discharge planning: alf facility
== END 2017-10-10 13:32 ==
LOC: C.ACU 11:08 → ENRESERV 17:26 → C.2T 18:02
PROVIDERS: ADMIT Anesthesiology; ATTEND Anesthesiology
DX: R25.2 Cramp and spasm (principal); I10 Essential (primary) hypertension; R33.9 Retention of urine, unspecified; G35 Multiple sclerosis; Z87.891 Personal history of nicotine dependence; F12.90 Cannabis use, unspecified, uncomplicated; Z79.899 Other long term (current) drug therapy